=== PATIENT | female | born 1975 | race Caucasian/White ===

== ENCOUNTER 2017-08-29 02:28 | Emergency (ER) | payer MEDICAID ==
[2017-08-29] MEDS ORDERED: ONDANSETRON 4 MG/2 ML VIAL ONE (02:33)
[2017-08-29] MEDS ORDERED: NS 1,000 ML IV ONE ×2 (02:41)
[2017-08-29] MEDS ORDERED: ONDANSETRON 4 MG/2 ML VIAL IVP ONE (02:41)
[2017-08-29] MEDS ORDERED: HYDROmorphONE/DILAUDID 1 MG/ML INJ IVP ONE ×2 (02:41→03:21)
--- NOTE | 2017-08-29 02:41 | EDPHY ---
H & P Stated Complaint: c/o abd pain x3 days, dx with uti yesterday, severe pain tonight in R flank HPI/ROS: HPI CHIEF COMPLAINT: Abdominal pain, fever, nausea, recent diagnosis of urinary tract infection HISTORY OF PRESENT ILLNESS: This patient very pleasant 42-year-old female she presents emergency room by private vehicle for abdominal pain nausea and fever. For the past 3 days she has had some right-sided abdominal pain right flank pain. She complains of right upper quadrant and right side pain and right lower quadrant abdominal pain this evening worse. She really can't describe it. She states very severe. She distally reports she was seen at a clinic today and diagnosed with the urinary tract infection and started on antibiotics. She had an x-ray done and was told she has a stone. They do not think it was a kidney stone they think it may have been a gallstone. She has not any diarrhea. She does complain of fatigue, decreased appetite, and severe abdominal pain. Of note upon arrival to the emergency room she noted to be tachycardic, febrile , and hypertensive. Past Medical History: Denies significant medical history except for bipolar disorder Past Surgical History: No recent surgical history. Social History: Denies daily use of drugs alcohol tobacco products. Family History: Noncontributory ROS REVIEW OF SYSTEMS: A comprehensive 10 point review of systems is otherwise negative aside from elements mentioned in the history of present illness. Exam Constitutional appears nontoxic, but uncomfortable, triage nursing summary reviewed, vital signs reviewed, awake/alert. Eyes normal conjunctivae and sclera, EOMI, PERRLA. HENT normal inspection, atraumatic, moist mucus membranes, no epistaxis, neck supple/ no meningismus, no raccoon eyes. Respiratory clear to auscultation bilaterally, normal breath sounds, no respiratory distress, no wheezing. Cardiovascular tachycardic, regular rhythm, no murmur, no edema, distal pulses normal. Gastrointestinal tender palpation right upper quadrant, right mid abdomen and right lower quadrant, also tender palpation of the right CVA, no rebound, no guarding, normal bowel sounds, no distension, no pulsatile mass. Genitourinary no CVA tenderness. Musculoskeletal no midline vertebral tenderness, full range of motion, no calf swelling, no tenderness of extremities, no meningismus, good pulses, neurovascularly intact. Skin pink, warm, & dry, no rash, skin atraumatic. Neurologic awake, alert and oriented x 3, AAOx3, moves all 4 extremities equally, motor intact, sensory intact, CN II-XII intact, normal cerebellar, normal vision, normal speech. Psychiatric normal mood/affect. Heme/Lymph/Immune no lymphadenopathy. Differential diagnosis includes but is not limited to and in no particular order : Obstructing kidney stone, infected kidney stone, acute cholecystitis Bowel obstruction, appendicitis, gallbladder disease, diverticulitis, colitis, enteritis, perforated viscus, gastritis, GERD, esophagitis, urinary tract infection, pyelonephritis, kidney stones Medical Decision Making: Plan for this patient IV establishment blood draw, IV fluid bolus 2 L normal saline, IV Zofran for nausea, IV Dilaudid for pain control, Tylenol for fever control, obtain blood work, full rn cardiac rehab, CT scan abdomen pelvis with IV contrast to help delineate abdominal pain the setting of a fever. Check UA. Blood cultures. Lactic acid. Urine culture. Re-evaluation: CT scan abdomen pelvis with IV contrast called to me shows enhancement of the right kidney. No hydroureter obstructing stone. CT scan findings show most likely a early pyelonephritis. 0544: I did reexamine this patient this time she is feeling much better. She states she would like to go home. I re-examined her abdomen is soft nontender there is no guarding or peritoneal signs. She is not vomiting. She received 2 L of fluid here Tylenol for fever control. She had a lactic acid that was less than 2. Blood cultures have been drawn. Influenza is pending. Her urinalysis does not show UTI however she has been on antibiotics today for a diagnosis of urinary tract infection at her clinic. Her CT scan does show enhancement of her right kidney concerning for possibly early pyelonephritis. I think this is most likely the cause of her nausea vomiting and abdominal pain and right-sided pain. She would like to go home I will provide her prescription for nausea medicine and pain medicine. Additionally she continue her oral antibiotics. However I did give her return precautions she understands return emergency room she develops worsening abdominal pain fever or vomiting. 0617: Influenza is negative. Patient is eager to go home. Strict return precautions given. She understands return immediately to emergency room if develops worsening abdominal pain flank pain vomiting or fever. Of note patient's previous prescription for nitro for tone she is currently taking and told her to continue taking this. With good contact information with her if blood cultures result positive or if we need to change her antibiotic to another prescription. Source: Patient - Medical/Surgical History Hx Asthma: No Hx Chronic Respiratory Disease: No Hx Diabetes: No Hx Cardiac Disease: No Hx Renal Disease: No Hx Cirrhosis: No Hx Alcoholism: No Hx HIV/AIDS: No Hx Splenectomy or Spleen Trauma: No Other PMH: depression, bipolar, c section - Social History Smoking Status: Former smoker Constitutional: Initial Vital Signs Temperature (C) 39.5 C H 08/29/17 02:34 Heart Rate 108 H 08/29/17 02:34 Respiratory Rate 22 H 08/29/17 02:34 Blood Pressure 151/81 H 08/29/17 02:34 O2 Sat (%) 92 08/29/17 02:34 O2 Delivery Mode Room Air O2 (L/minute) 1 Allergies/Adverse Reactions: No Known Allergies Allergy (Unverified 08/29/17 02:40) Home Medications: Medication Instructions Recorded Gabapentin 08/29/17 Hydrocodone/APAP 5/325 [[place] 1 - 2 tab PO Q4H PRN #10 tab 08/29/17 5/325] KLONOPIN 08/29/17 Macrobid 08/29/17 Ondansetron HCl [Zofran] 4 mg PO Q4-6PRN PRN #10 tablet 08/29/17 Tamsulosin HCl 08/29/17 Medical Decision Making - Data Points Laboratory Results: Laboratory Results 08/29/17 02:53 08/29/17 02:53 08/29/17 08/29/17 08/29/17 04:50 03:50 03:07 WBC RBC Hgb Hct MCV MCH MCHC RDW Plt Count MPV Neut % (Auto) Lymph % (Auto) [place] % (Auto) Eos % (Auto) Baso % (Auto) Nucleat RBC Rel Count Absolute Neuts (auto) Absolute Lymphs (auto) Absolute Monos (auto) Absolute Eos (auto) Absolute Basos (auto) Absolute Nucleated RBC Immature Gran % Immature Gran # PT 12.7 SEC SEC (12.0-15.0) INR 0.93 (0.83-1.16) APTT 28.4 SEC SEC (23.0-38.0) VBG Lactic Acid Sodium Potassium Chloride Carbon Dioxide Anion Gap BUN Creatinine Estimated GFR Glucose Calcium Total Bilirubin Conjugated Bilirubin Unconjugated Bilirubin AST ALT Alkaline Phosphatase Total Protein Albumin Lipase Beta HCG, Qual Urine Color YELLOW Urine Appearance CLEAR Urine pH 7.0 (5.0-7.5) Ur Specific [place] 1.028 (1.002-1.030) Urine Protein NEGATIVE (NEGATIVE) Urine Ketones NEGATIVE (NEGATIVE) Urine Blood NEGATIVE (NEGATIVE) Urine Nitrate NEGATIVE (NEGATIVE) Urine Bilirubin NEGATIVE (NEGATIVE) Urine Urobilinogen 4.0 EU H EU (0.2-1.0) Ur Leukocyte Esterase NEGATIVE (NEGATIVE) Urine Glucose NEGATIVE (NEGATIVE) Nasal Influenza A PCR NEGATIVE FOR FLU A (NEGATIVE) Nasal Influenza B PCR NEGATIVE FOR FLU B (NEGATIVE) 08/29/17 08/29/17 08/29/17 03:07 02:53 02:53 WBC RBC Hgb Hct MCV MCH MCHC RDW Plt Count MPV Neut % (Auto) Lymph % (Auto) [place] % (Auto) Eos % (Auto) Baso % (Auto) Nucleat RBC Rel Count Absolute Neuts (auto) Absolute Lymphs (auto) Absolute Monos (auto) Absolute Eos (auto) Absolute Basos (auto) Absolute Nucleated RBC Immature Gran % Immature Gran # PT INR APTT VBG Lactic Acid 1.2 mmol/L mmol/L (0.7-2.1) Sodium 142 mEq/L mEq/L (134-144) Potassium 3.9 mEq/L mEq/L (3.5-5.2) Chloride 103 mEq/L mEq/L (97-110) Carbon Dioxide 26 mEq/l mEq/l (22-31) Anion Gap 13 mEq/L mEq/L (8-16) BUN 17 mg/dL mg/dL (7-23) Creatinine 0.9 mg/dL mg/dL (0.6-1.0) Estimated GFR > 60 Glucose 118 mg/dL H mg/dL (70-100) Calcium 9.4 mg/dL mg/dL (8.5-10.4) Total Bilirubin 0.6 mg/dL mg/dL (0.1-1.4) Conjugated Bilirubin 0.4 mg/dL mg/dL (0.0-0.5) Unconjugated Bilirubin 0.2 mg/dL mg/dL (0.0-1.1) AST 46 IU/L IU/L (14-46) ALT 71 IU/L H IU/L (9-52) Alkaline Phosphatase 101 IU/L IU/L (38-126) Total Protein 7.3 g/dL g/dL (6.3-8.2) Albumin 4.3 g/dL g/dL (3.5-5.0) Lipase 95 IU/L IU/L (23-300) Beta HCG, Qual NEGATIVE Urine Color Urine Appearance Urine pH Ur Specific [place] Urine Protein Urine Ketones Urine Blood Urine Nitrate Urine Bilirubin Urine Urobilinogen Ur Leukocyte Esterase Urine Glucose Nasal Influenza A PCR Nasal Influenza B PCR 08/29/17 02:53 WBC 10.94 10^3/uL H 10^3/uL (3.80-9.50) RBC 4.48 10^6/uL 10^6/uL (4.18-5.33) Hgb 14.6 g/dL g/dL (12.6-16.3) Hct 42.7 % % (38.0-47.0) MCV 95.3 fL fL (81.5-99.8) MCH 32.6 pg pg (27.9-34.1) MCHC 34.2 g/dL g/dL (32.4-36.7) RDW 12.0 % % (11.5-15.2) Plt Count 216 10^3/uL 10^3/uL (150-400) MPV 10.3 fL fL (8.7-11.7) Neut % (Auto) 80.2 % H % (39.3-74.2) Lymph % (Auto) 11.2 % L % (15.0-45.0) [place] % (Auto) 7.0 % % (4.5-13.0) Eos % (Auto) 0.9 % % (0.6-7.6) Baso % (Auto) 0.3 % % (0.3-1.7) Nucleat RBC Rel Count 0.0 % % (0.0-0.2) Absolute Neuts (auto) 8.77 10^3/uL H 10^3/uL (1.70-6.50) Absolute Lymphs (auto) 1.23 10^3/uL 10^3/uL (1.00-3.00) Absolute Monos (auto) 0.77 10^3/uL 10^3/uL (0.30-0.80) Absolute Eos (auto) 0.10 10^3/uL 10^3/uL (0.03-0.40) Absolute Basos (auto) 0.03 10^3/uL 10^3/uL (0.02-0.10) Absolute Nucleated RBC 0.00 10^3/uL 10^3/uL (0-0.01) Immature Gran % 0.4 % % (0.0-1.1) Immature Gran # 0.04 10^3/uL 10^3/uL (0.00-0.10) PT INR APTT VBG Lactic Acid Sodium Potassium Chloride Carbon Dioxide Anion Gap BUN Creatinine Estimated GFR Glucose Calcium Total Bilirubin Conjugated Bilirubin Unconjugated Bilirubin AST ALT Alkaline Phosphatase Total Protein Albumin Lipase Beta HCG, Qual Urine Color Urine Appearance Urine pH Ur Specific [place] Urine Protein Urine Ketones Urine Blood Urine Nitrate Urine Bilirubin Urine Urobilinogen Ur Leukocyte Esterase Urine Glucose Nasal Influenza A PCR Nasal Influenza B PCR Medications Given: Discontinued Medications Acetaminophen (Tylenol) 1,000 mg PO EDNOW ONE Stop: 08/29/17 02:49 Last Admin: 08/29/17 02:54 Dose: 1,000 mg Hydromorphone HCl (Dilaudid) 0.5 mg IVP EDNOW ONE Stop: 08/29/17 02:42 Last Admin: 08/29/17 02:48 Dose: 0.5 mg Hydromorphone HCl (Dilaudid) 1 mg IVP EDNOW ONE Stop: 08/29/17 03:22 Last Admin: 08/29/17 03:25 Dose: 1 mg Sodium Chloride (Ns) 1,000 mls @ 0 mls/hr IV EDNOW ONE; Wide Open PRN Reason: Protocol Stop: 08/29/17 02:42 Last Admin: 08/29/17 02:47 Dose: 1,000 mls Sodium Chloride (Ns) 1,000 mls @ 0 mls/hr IV EDNOW ONE; Wide Open PRN Reason: Protocol Stop: 08/29/17 02:42 Last Admin: 08/29/17 02:48 Dose: 1,000 mls Ceftriaxone Sodium/Dextrose (Rocephin 1 Gm (Premix)) 50 mls @ 100 mls/hr IV EDNOW ONE PRN Reason: Protocol Stop: 08/29/17 06:15 Last Admin: 08/29/17 05:51 Dose: 50 mls Ondansetron HCl (Zofran) 4 mg IVP EDNOW ONE Stop: 08/29/17 02:42 Last Admin: 08/29/17 02:47 Dose: 4 mg Departure - Departure Disposition: Home, Routine, Self-Care Clinical Impression: Abdominal pain Qualifiers: Abdominal location: unspecified location Qualified Code(s): R10.9 - Unspecified abdominal pain Condition: Good Instructions: Abdominal Pain (ED) Additional Instructions: 1. Drink lots of fluids stay well-hydrated. 2. Return emergency room if there is worsening abdominal pain fever or vomiting. 3. Take antibiotics as prescribed. 4. Zofran for nausea. 5. [place] for severe pain. 6. Return if worse. Referrals: NAVYA CLARK [Other] - As per Instructions Prescriptions: Hydrocodone/APAP 5/325 [[place] 5/325] 1 - 2 tab PO Q4H PRN #10 tab PRN Reason: Pain, Moderate Ondansetron HCl [Zofran] 4 mg PO Q4-6PRN PRN #10 tablet PRN Reason: Nausea/Vomiting, Use 1st
[2017-08-29] MEDS ORDERED: ACETAMINOPHEN 500 MG TAB PO ONE (02:48)
[2017-08-29 02:59] LABS: % IMMATURE GRANULYOCYTES 0.4 % (0.0-1.1); ABSOLUTE IMMATURE GRANULOCYTES 0.04 10^3/uL (0.00-0.10); ADD DIFF? NO; ADD MORPH? NO; ATYPICAL LYMPHOCYTE FLAG 0 (0-99); FRAGMENT RBC FLAG 0 (0-99); HEMATOCRIT 42.7 % (38.0-47.0); HEMOGLOBIN 14.6 g/dL (12.6-16.3); LEFT SHIFT FLG 0 (0-99); LIPEMIA HEMOLYSIS FLAG 90 (0-99); MEAN CELL HEMOGLOBIN 32.6 pg (27.9-34.1); MEAN CELL HEMOGLOBIN CONCENTR. 34.2 g/dL (32.4-36.7); MEAN CELL VOLUME 95.3 fL (81.5-99.8); MEAN PLATELET VOLUME 10.3 fL (8.7-11.7); PLATELET CLUMPS FLAG 0 (0-99); PLATELET COUNT 216 10^3/uL (150-400); RED BLOOD CELL COUNT 4.48 10^6/uL (4.18-5.33)
[2017-08-29 03:00] LABS: ADD SCAN? NO
[2017-08-29 03:13] LABS: ALANINE AMINOTRANSFERASE 71 IU/L (9-52); ALBUMIN 4.3 g/dL (3.5-5.0); ALKALINE PHOSPHATASE 101 IU/L (38-126); ANION GAP 13 mEq/L (8-16); ASPARTATE AMINOTRANSFERASE 46 IU/L (14-46); BILIRUBIN,TOTAL 0.6 mg/dL (0.1-1.4); BILIRUBIN-CONJUGATED 0.4 mg/dL (0.0-0.5); BILIRUBIN-UNCONJUGATED 0.2 mg/dL (0.0-1.1); CALCIUM 9.4 mg/dL (8.5-10.4); CARBON DIOXIDE 26 mEq/l (22-31); CHLORIDE 103 mEq/L (97-110); CREATININE 0.9 mg/dL (0.6-1.0); GLOMERULAR FILTRATION RATE > 60; GLUCOSE 118 mg/dL (70-100); POTASSIUM 3.9 mEq/L (3.5-5.2); SODIUM 142 mEq/L (134-144); TOTAL PROTEIN 7.3 g/dL (6.3-8.2)
[2017-08-29] MEDS ORDERED: IOPAMIDOL (ISOVUE-300) 100 ML BTL ONE (03:18)
[2017-08-29] MEDS ORDERED: HYDROmorphONE/DILAUDID 1 MG/ML INJ ONE (03:18)
[2017-08-29 03:22] LABS: INR 0.93 (0.83-1.16); PROTIME(PATIENT) 12.7 SEC (12.0-15.0)
[2017-08-29 03:23] LABS: APTT 28.4 SEC (23.0-38.0)
[2017-08-29 04:11] VITALS: RESP 16
[2017-08-29 04:12] LABS: COLOR YELLOW; LEUKOCYTE ESTERASE,URINE NEGATIVE (NEGATIVE); NITRITE,URINE NEGATIVE (NEGATIVE)
[2017-08-29 06:28] VITALS: BP 99/57; PULSE 98; TEMP 99.5; O2SAT 92
== END 2017-08-29 06:26 | disposition home or self-care (01) ==
DX: R10.11 Right upper quadrant pain (principal); R10.31 Right lower quadrant pain; E86.9 Volume depletion, unspecified; Z87.891 Personal history of nicotine dependence
CPT/HCPCS: 96365; J0696; J1170; J2405; Q9967

== ENCOUNTER 2017-08-30 12:58 | Emergency (ER) | payer MEDICAID ==
--- NOTE | 2017-08-30 13:15 | EDPHY ---
H & P Stated Complaint: RUQ pain Time Seen by Provider: 08/30/17 13:14 - Personal History LMP (Females 10-55): Irregular Current Tetanus/Diphtheria Vaccine: Yes Current Tetanus Diphtheria and Acellular Pertussis (TDAP): Yes - Medical/Surgical History Hx Asthma: No Hx Chronic Respiratory Disease: No Hx Diabetes: No Hx Cardiac Disease: No Hx Renal Disease: No Hx Cirrhosis: No Hx Alcoholism: No Hx HIV/AIDS: No Hx Splenectomy or Spleen Trauma: No Other PMH: depression, bipolar, c section - Social History Smoking Status: Former smoker Constitutional: Initial Vital Signs Temperature (C) 37.4 C 08/30/17 13:08 Heart Rate 96 08/30/17 13:08 Respiratory Rate 16 08/30/17 13:08 Blood Pressure 104/76 08/30/17 13:08 O2 Sat (%) 94 08/30/17 13:08 O2 Delivery Mode Room Air Allergies/Adverse Reactions: No Known Allergies Allergy (Unverified 08/29/17 02:40) Home Medications: Medication Instructions Recorded Gabapentin 08/29/17 Hydrocodone/APAP 5/325 [[place] 1 - 2 tab PO Q4H PRN #10 tab 08/29/17 5/325] KLONOPIN 08/29/17 Ondansetron HCl [Zofran] 4 mg PO Q4-6PRN PRN #10 tablet 08/29/17 Cephalexin [Keflex (RX)] 500 mg PO TID #30 cap 08/30/17 MYL[place] ULTIMATE-STRENGTH TAB 08/30/17 Medical Decision Making - Diagnostics Imaging Results: Imaging Impressions Abdomen/Pelvis Ultrasound 08/30/17 13:31 Impression: No evidence for hydronephrosis in either kidney. Mild patchy echogenicity of the right kidney suggestive of pyelonephritis is suggested on the comparison CT. Results called and discussed with Brad Good M.D. on 08/30/2017 at 14:33. Imaging: Discussed imaging studies w/ call center support consultant Radiologist ED Course/Re-evaluation: CHIEF COMPLAINT: Abdominal pain HISTORY OF PRESENT ILLNESS: This patient is a 42 year old female complaining of right upper quadrant abdominal pain beginning three days ago. She initially visited her primary care provider and was diagnosed with a UTI after she developed sudden shooting pains in her right upper quadrant. Her symptoms worsened despite antibiotic treatment, so a friend brought her to ED yesterday 08/29/17. She received CT imaging, fluids, pain medication, and IV antibiotics and was offered admission. She declined this. The patient was taking Nitrofurantoin prior to her visit to the emergency department, and has continued this along with Zofran and [place] for symptom relief. Her pain became worse this morning and she felt diaphoretic and febrile so she presents for reevaluation. She denies any recent travel or abnormal food or water sources. She is additionally concerned that she had not had her menstrual period in three months. She denies abnormal vaginal discharge, vomiting, diarrhea, chest pain, shortness of breath, recent cold or cough, or other associated symptoms. REVIEW OF SYSTEMS: A 10 point review of systems was performed and is negative with the exception of the elements mentioned in the history of present illness. PHYSICAL EXAM: HR, BP, O2 Sat, RR. Temp noted General Appearance: Alert, well hydrated, appropriate, and non-toxic appearing. Head: Atraumatic without scalp tenderness or obvious injury Eyes: Pupils equal, round, reactive to light and accommodation, EOMI, no trauma , no injection. Ears: Clear bilaterally, no perforation, normal landmarks Nose: Atraumatic, no rhinorrhea, clear. Throat: There is no erythema or exudates, no lesions, normal tonsils, mucus membranes moist. Neck: Supple, nontender, no lymphadenopathy. Respiratory: No retractions, no distress, no wheezes, and no accessory muscle use. Lungs are clear to auscultation bilaterally. Cardiovascular: Regular rate and rhythm, no murmurs, rubs, or gallops. Bilateral carotid, radial, dorsalis pedis, and posterior tibial pulses intact. Good capillary refill all extremities. Gastrointestinal: Right upper quadrant and right flank tenderness. Abdomen is soft, non-distended, no masses, no rebound, no guarding, no peritoneal signs. Musculoskeletal: Normal active ROM of all extremities, atraumatic. Neurological: Alert, appropriate, and interactive. Nonfocal neuro exam. Skin: No rashes, good turgor, no nodules on palpation. Past medical history: Pancreatitis. Bipolar disorder. Past surgical history: Cesarian section. Family history: Noncontributory. Social history: No alcohol use. Friend at bedside. Former smoker. History of alcohol use, none currently. DIFFERENTIAL DIAGNOSIS: The differential diagnosis for the patient's abdominal pain included but was not limited to ovarian cyst, pelvic inflammatory disease, ovarian torsion, urinary tract infection, ectopic , cholecystitis, and appendicitis. MEDICAL DECISION MAKING: This 42 year old female presents with right upper quadrant and right flank pain and tenderness worsening over the last three days. Her primary care provider initially treated her for UTI with Macrobid. She was evaluated in this emergency department yesterday 08/29/17. Reviewed medical records from this visit. CT abdomen/pelvis with contrast at that time revealed pyelonephritis of the right kidney with no evidence of appendicitis, cholecystitis, pancreatitis, diverticulitis, or nephrolithiasis. She was treated with IV Rocephin at that time. She was discharged pending urine cultures. Plan for ultrasound of right kidney for further evaluation. Administered 1gm IV Rocephin. Administered 4mg IV Zofran, 1mg IV Dilaudid, 30mg IV Ketorolac for symptom relief. 14:[address] Saenz, radiologist. US right kidney shows right pyelonephritis, no obstruction or abscess. 15:16 Reassessed patient. She is feeling better following antiemetics and pain medication. Discussed imaging results. Plan to discharge home in good condition with prescription for Keflex upon completion of her IV Rocephin. She will continue to take Zofran and [place] as directed as needed for symptom relief. She understands she should take Keflex and discontinue her Macrobid. Plan to provide additional [place] for pain relief as she continues to experience considerable pain. Follow up and return precautions discussed. She is comfortable with this plan. - Data Points Laboratory Results: Laboratory Results 08/30/17 13:47 08/30/17 13:47 08/30/17 08/30/17 13:47 13:47 WBC 10.33 10^3/uL H 10^3/uL (3.80-9.50) RBC 4.00 10^6/uL L 10^6/uL (4.18-5.33) Hgb 13.0 g/dL g/dL (12.6-16.3) Hct 38.5 % % (38.0-47.0) MCV 96.3 fL fL (81.5-99.8) MCH 32.5 pg pg (27.9-34.1) MCHC 33.8 g/dL g/dL (32.4-36.7) RDW 12.1 % % (11.5-15.2) Plt Count 191 10^3/uL 10^3/uL (150-400) MPV 10.7 fL fL (8.7-11.7) Neut % (Auto) 70.5 % % (39.3-74.2) Lymph % (Auto) 16.9 % % (15.0-45.0) [place] % (Auto) 10.4 % % (4.5-13.0) Eos % (Auto) 1.4 % % (0.6-7.6) Baso % (Auto) 0.3 % % (0.3-1.7) Nucleat RBC Rel Count 0.0 % % (0.0-0.2) Absolute Neuts (auto) 7.29 10^3/uL H 10^3/uL (1.70-6.50) Absolute Lymphs (auto) 1.75 10^3/uL 10^3/uL (1.00-3.00) Absolute Monos (auto) 1.07 10^3/uL H 10^3/uL (0.30-0.80) Absolute Eos (auto) 0.14 10^3/uL 10^3/uL (0.03-0.40) Absolute Basos (auto) 0.03 10^3/uL 10^3/uL (0.02-0.10) Absolute Nucleated RBC 0.00 10^3/uL 10^3/uL (0-0.01) Immature Gran % 0.5 % % (0.0-1.1) Immature Gran # 0.05 10^3/uL 10^3/uL (0.00-0.10) Sodium 142 mEq/L mEq/L (134-144) Potassium 4.2 mEq/L mEq/L (3.5-5.2) Chloride 104 mEq/L mEq/L (97-110) Carbon Dioxide 26 mEq/l mEq/l (22-31) Anion Gap 12 mEq/L mEq/L (8-16) BUN 6 mg/dL L mg/dL (7-23) Creatinine 0.7 mg/dL mg/dL (0.6-1.0) Estimated GFR > 60 Glucose 100 mg/dL mg/dL (70-100) Calcium 9.3 mg/dL mg/dL (8.5-10.4) Medications Given: Discontinued Medications Hydromorphone HCl (Dilaudid) 1 mg IVP EDNOW ONE Stop: 08/30/17 13:31 Last Admin: 08/30/17 13:55 Dose: 1 mg Ceftriaxone Sodium/Dextrose (Rocephin 1 Gm (Premix)) 50 mls @ 100 mls/hr IV EDNOW ONE PRN Reason: Protocol Stop: 08/30/17 13:58 Last Admin: 08/30/17 14:41 Dose: 50 mls Sodium Chloride (Ns) 1,000 mls @ 0 mls/hr IV ONCE ONE PRN Reason: Wide Open Stop: 08/30/17 14:01 Last Admin: 08/30/17 14:42 Dose: 1,000 mls Ketorolac Tromethamine (Toradol) 30 mg IVP EDNOW ONE Stop: 08/30/17 13:30 Last Admin: 08/30/17 13:55 Dose: 30 mg Ondansetron HCl (Zofran) 4 mg IVP EDNOW ONE Stop: 08/30/17 13:31 Last Admin: 08/30/17 13:56 Dose: 4 mg Departure - Departure Disposition: Home, Routine, Self-Care Clinical Impression: Acute pyelonephritis Condition: Good Instructions: Urinary Tract Infection in Women (ED), Kidney Infection (ED) Additional Instructions: 1. Take Keflex as prescribed. Discontinue Macrobid. 2. Continue to take Zofran as directed as needed for nausea relief. 3. Take [place] as prescribed as needed for pain relief. 4. Follow up with your primary care provider in 2-3 days for continued evaluation. 5. Return to the Emergency Department for fever, uncontrollable vomiting, worsening abdominal or flank pain, or failure to improve within 72 hours. Referrals: PRISCA CLARK [Other] - As per Instructions Edmund Castillo MD [Medical Doctor] - As per Instructions Prescriptions: Cephalexin [Keflex (RX)] 500 mg PO TID #30 cap Report Scribed for: Brad Good Report Scribed by: Ria Anderson Date of Report: 08/30/17 Time of Report: 13:47
[2017-08-30] MEDS ORDERED: KETOROLAC 30 MG/1 ML SDV IVP ONE (13:29)
[2017-08-30] MEDS ORDERED: HYDROmorphONE/DILAUDID 1 MG/ML INJ IVP ONE (13:30)
[2017-08-30] MEDS ORDERED: ONDANSETRON 4 MG/2 ML VIAL IVP ONE (13:30)
[2017-08-30] MEDS ORDERED: NS 1,000 ML IV ONE (14:00)
[2017-08-30 14:02] LABS: PLATELET COUNT 191 10^3/uL (150-400)
[2017-08-30 15:42] VITALS: BP 98/51; PULSE 89; RESP 18; TEMP 97.9; O2SAT 92
== END 2017-08-30 15:42 | disposition home or self-care (01) ==
DX: N10 Acute pyelonephritis (principal); Z87.891 Personal history of nicotine dependence
CPT/HCPCS: 96365; J0696; J1170; J1885; J2405

== ENCOUNTER 2017-09-14 14:08 | Emergency (ER) | payer MEDICAID ==
[2017-09-14] MEDS ORDERED: ONDANSETRON 4 MG/2 ML VIAL IVP ONE (14:18)
[2017-09-14] MEDS ORDERED: NS 1,000 ML IV ONE (14:18)
[2017-09-14 14:21] VITALS: BP 106/54; PULSE 104; RESP 18; TEMP 97.9; O2SAT 97
--- NOTE | 2017-09-14 14:22 | EDPHY ---
H & P Time Seen by Provider: 09/14/17 14:12 HPI/ROS: CHIEF COMPLAINT: Right lower quadrant pain, intoxication HISTORY OF PRESENT ILLNESS: Patient is a 42-year-old alcoholic female with a history of depression and alcoholism and pancreatitis who is brought to the emergency department by police for intoxication and right lower quadrant abdominal pain. The patient was found wandering around in the street intoxicated in front of the [facility]. When police confronted her she began complaining of right lower quadrant pain. She was seen here on the and 30 of August complaining of right flank and right upper quadrant pain. At that time she had a CT abdomen pelvis that showed pyelonephritis on the right side with normal appearing appendix, gallbladder, pancreas and no sign of kidney stone. She was given IV Rocephin and urine cultures were sent which came back with 3 nonspecific colony types. She had also been placed on Macrobid a week earlier by her primary for a diagnosis of urinary tract infection. She returned the next day on August 29 complaining of continued pain and had an ultrasound that again confirmed signs of pyelonephritis but no other abnormalities. She again had Rocephin and was discharged with Keflex. She states that she completed those antibiotics but continues to have pain. She primarily complains about her and states that they need to get a divorce but when reminded does complain of right lower quadrant abdominal pain. She denies any back pain or right upper quadrant pain. No fevers. She repeatedly was stopped from putting her finger down her throat to induce vomiting. REVIEW OF SYSTEMS: Constitutional: denies: chills, fever, recent illness, recent injury EENTM: denies: blurred vision, double vision, nose congestion Respiratory: denies: cough, shortness of breath Cardiac: denies: chest pain, irregular heart rate, lightheadedness, palpitations Gastrointestinal/Abdominal: denies: abdominal pain, diarrhea, nausea, vomiting, blood streaked stools Genitourinary: denies: dysuria, frequency, hematuria, pain Musculoskeletal: denies: joint pain, muscle pain Skin: denies: lesions, rash, jaundice, bruising Neurological: denies: headache, numbness, paresthesia, tingling, dizziness, weakness Hematologic/Lymphatic: denies: blood clots, easy bleeding, easy bruising Immunologic/allergic: denies: HIV/AIDS, transplant EXAM: GENERAL: well nourished HEAD: Atraumatic, normocephalic. EYES: Pupils equal round and reactive to light, extraocular movements intact, sclera anicteric, conjunctiva are normal. ENT: TMs normal, nares patent, oropharynx clear without exudates. Moist mucous membranes. NECK: Normal range of motion, supple without lymphadenopathy or JVD. LUNGS: Breath sounds clear to auscultation bilaterally and equal. No wheezes rales or rhonchi. HEART: Regular rate and rhythm without murmurs, rubs or gallops. ABDOMEN: Right lower quadrant pain, no tenderness to palpation, normoactive bowel sounds. No guarding, no rebound. No masses appreciated. BACK: No CVA tenderness, no spinal tenderness, step-offs or deformities EXTREMITIES: Normal range of motion, no pitting or edema. No clubbing or cyanosis. NEUROLOGICAL: Cranial nerves II through XII grossly intact. Normal speech, normal gait. 5/5 strength, normal movement in all extremities, normal sensation PSYCH: Has been drinking however clinically sober answers questions appropriately. Source: Patient, EMS, Old records Exam Limitations: Intoxication - Medical/Surgical History Hx Asthma: No Hx Chronic Respiratory Disease: No Hx Diabetes: No Hx Cardiac Disease: No Hx Renal Disease: No Hx Cirrhosis: No Hx Alcoholism: No Hx HIV/AIDS: No Hx Splenectomy or Spleen Trauma: No Other PMH: Alcohol abuse, depression, bipolar, c section - Family History Significant Family History: No pertinent family hx - Social History Smoking Status: Former smoker Alcohol Use: Sober Drug Use: None Constitutional: Initial Vital Signs Temperature (C) 36.6 C 09/14/17 14:12 Heart Rate 104 H 09/14/17 14:12 Respiratory Rate 18 09/14/17 14:12 Blood Pressure 106/54 L 09/14/17 14:12 O2 Sat (%) 97 09/14/17 14:12 O2 Delivery Mode Room Air Allergies/Adverse Reactions: No Known Allergies Allergy (Unverified 08/29/17 02:40) Home Medications: Medication Instructions Recorded Gabapentin 08/29/17 Hydrocodone/APAP 5/325 [Alta 1 - 2 tab PO Q4H PRN #10 tab 08/29/17 5/325] KLONOPIN 08/29/17 Ondansetron HCl [Zofran] 4 mg PO Q4-6PRN PRN #10 tablet 08/29/17 Cephalexin [Keflex (RX)] 500 mg PO TID #30 cap 08/30/17 HYDROcodone/APAP [Alta 1 - 2 each PO Q4-6PRN PRN #20 tab 08/30/17 [id number]] MYLANTA ULTIMATE-STRENGTH TAB 08/30/17 Medical Decision Making ED Course/Re-evaluation: 3:00 p.m. the patient continues to put her finger down her throat, when I asked her to stop she told me that she wants pain medicine. I told her I did not feel comfortable giving her narcotics because I am concerned about abuse. She was very angry about this and states that she would like to just go home. She does not wish to go back to the [facility]. Her abdominal exam remains benign. 3:05 p.m. after being discharged the patient is demanding a ride home because she was "brought here unwillingly". 3:10 p.m. I reviewed the patient's lab work. Her is positive. Her test was negative when she was seen 2 weeks ago. I found her in the waiting room calling a cab. I brought her back to triage informed her of this and recommended she come back is into the ER so that we can rule out ectopic . I told her I would give her the pain medication. She refused and stated she just wants to go home. She states she is not currently having pain which will come back if she does. I told her to stop drinking because she is and to begin taking multivitamin. She states that she does not usually drink. She is intoxicated however I feel that she has decision making capacity and understands the risks involved. She is ambulating without any difficulty at all. She is able to have a complete conversation and answer my questions appropriately. She understands the risks and benefits we discussed at length. The nurse and I both separately encouraged her to stay and encouraged her to return immediately if she has more right lower quadrant pain. She is primarily concerned about her who called the police on her today and a few days ago as well. Differential Diagnosis: Partial list of the Differential diagnosis considered include but were not limited to; intoxication, and drug-seeking behavior and although unlikely based on the history and physical exam, I also considered appendicitis, kidney stone, urinary tract infection, pyelonephritis. - Data Points Laboratory Results: Laboratory Results 09/14/17 14:40 09/14/17 14:40 09/14/17 09/14/17 09/14/17 14:50 14:40 14:40 WBC RBC Hgb Hct MCV MCH MCHC RDW Plt Count MPV Neut % (Auto) Lymph % (Auto) Yell % (Auto) Eos % (Auto) Baso % (Auto) Nucleat RBC Rel Count Absolute Neuts (auto) Absolute Lymphs (auto) Absolute Monos (auto) Absolute Eos (auto) Absolute Basos (auto) Absolute Nucleated RBC Immature Gran % Immature Gran # Sodium 154 mEq/L H mEq/L (134-144) Potassium 4.7 mEq/L mEq/L (3.5-5.2) Chloride 110 mEq/L mEq/L (97-110) Carbon Dioxide 27 mEq/l mEq/l (22-31) Anion Gap 17 mEq/L H mEq/L (8-16) BUN 19 mg/dL mg/dL (7-23) Creatinine 0.9 mg/dL mg/dL (0.6-1.0) Estimated GFR > 60 Glucose 100 mg/dL mg/dL (70-100) Calcium 10.0 mg/dL mg/dL (8.5-10.4) Total Bilirubin 0.3 mg/dL mg/dL (0.1-1.4) Conjugated Bilirubin 0.3 mg/dL mg/dL (0.0-0.5) Unconjugated Bilirubin 0.0 mg/dL mg/dL (0.0-1.1) AST 56 IU/L H IU/L (14-46) ALT 64 IU/L H IU/L (9-52) Alkaline Phosphatase 106 IU/L IU/L (38-126) Total Protein 8.1 g/dL g/dL (6.3-8.2) Albumin 4.7 g/dL g/dL (3.5-5.0) Lipase 70 IU/L IU/L (23-300) Beta HCG, Qual POSITIVE Urine Color YELLOW Urine Appearance MODERATELY TURBID Urine pH 5.0 (5.0-7.5) Ur Specific [place] 1.019 (1.002-1.030) Urine Protein NEGATIVE (NEGATIVE) Urine Ketones NEGATIVE (NEGATIVE) Urine Blood NEGATIVE (NEGATIVE) Urine Nitrate NEGATIVE (NEGATIVE) Urine Bilirubin NEGATIVE (NEGATIVE) Urine Urobilinogen NEGATIVE EU EU (0.2-1.0) Ur Leukocyte Esterase NEGATIVE (NEGATIVE) Urine RBC 1-3 /hpf /hpf (0-3) Urine WBC 1-3 /hpf /hpf (0-3) Ur Epithelial Cells 3+ /lpf H /lpf (NONE-1+) Hyaline Casts 1-5 /lpf /lpf (0-1) Urine Mucus TRACE /lpf /lpf (NONE-1+) Urine Glucose NEGATIVE (NEGATIVE) Ethyl Alcohol 216 mg/dL H mg/dL (0-10) 09/14/17 14:40 WBC 10.10 10^3/uL H 10^3/uL (3.80-9.50) RBC 4.72 10^6/uL 10^6/uL (4.18-5.33) Hgb 14.9 g/dL g/dL (12.6-16.3) Hct 44.9 % % (38.0-47.0) MCV 95.1 fL fL (81.5-99.8) MCH 31.6 pg pg (27.9-34.1) MCHC 33.2 g/dL g/dL (32.4-36.7) RDW 12.2 % % (11.5-15.2) Plt Count 382 10^3/uL 10^3/uL (150-400) MPV 9.6 fL fL (8.7-11.7) Neut % (Auto) 73.3 % % (39.3-74.2) Lymph % (Auto) 21.7 % % (15.0-45.0) Yell % (Auto) 3.1 % L % (4.5-13.0) Eos % (Auto) 0.7 % % (0.6-7.6) Baso % (Auto) 0.7 % % (0.3-1.7) Nucleat RBC Rel Count 0.0 % % (0.0-0.2) Absolute Neuts (auto) 7.41 10^3/uL H 10^3/uL (1.70-6.50) Absolute Lymphs (auto) 2.19 10^3/uL 10^3/uL (1.00-3.00) Absolute Monos (auto) 0.31 10^3/uL 10^3/uL (0.30-0.80) Absolute Eos (auto) 0.07 10^3/uL 10^3/uL (0.03-0.40) Absolute Basos (auto) 0.07 10^3/uL 10^3/uL (0.02-0.10) Absolute Nucleated RBC 0.00 10^3/uL 10^3/uL (0-0.01) Immature Gran % 0.5 % % (0.0-1.1) Immature Gran # 0.05 10^3/uL 10^3/uL (0.00-0.10) Sodium Potassium Chloride Carbon Dioxide Anion Gap BUN Creatinine Estimated GFR Glucose Calcium Total Bilirubin Conjugated Bilirubin Unconjugated Bilirubin AST ALT Alkaline Phosphatase Total Protein Albumin Lipase Beta HCG, Qual Urine Color Urine Appearance Urine pH Ur Specific [place] Urine Protein Urine Ketones Urine Blood Urine Nitrate Urine Bilirubin Urine Urobilinogen Ur Leukocyte Esterase Urine RBC Urine WBC Ur Epithelial Cells Hyaline Casts Urine Mucus Urine Glucose Ethyl Alcohol Medications Given: Discontinued Medications Sodium Chloride (Ns) 1,000 mls @ 0 mls/hr IV EDNOW ONE; Wide Open PRN Reason: Protocol Stop: 09/14/17 14:19 Last Admin: 09/14/17 14:40 Dose: 1,000 mls Ondansetron HCl (Zofran) 4 mg IVP EDNOW ONE Stop: 09/14/17 14:19 Last Admin: 09/14/17 14:40 Dose: 4 mg Departure - Departure Disposition: Against Medical Advice Clinical Impression: Alcohol intoxication Qualifiers: Complication of substance-induced condition: uncomplicated Qualified Code(s): F10.920 - Alcohol use, unspecified with intoxication, uncomplicated Qualifiers: Weeks of gestation: less than 8 weeks Qualified Code(s): Z3A.01 - Less than 8 weeks gestation of Condition: Good Instructions: (ED), Alcohol Intoxication (ED) Referrals: Patient,NotPresent [Unknown] - As per Instructions
[2017-09-14 14:55] LABS: PLATELET COUNT 382 10^3/uL (150-400)
== END 2017-09-14 15:45 | disposition left against medical advice (07) ==
LOC: EDUNIT#
PROC: 3E0337Z Introduction of Electrolytic and Water Balance Substance into Peripheral Vein, Percutaneous Approach (ICD-10-PCS; principal; 2017-09-14)
DX: F10.920 Alcohol use, unspecified with intoxication, uncomplicated (principal); E86.9 Volume depletion, unspecified; Z33.1 Pregnant state, incidental; Z87.891 Personal history of nicotine dependence
CPT/HCPCS: 96374; G0480; J2405

== ENCOUNTER 2018-01-28 10:58 | Emergency (ER) | payer MEDICAID ==
[2018-01-28 11:09] VITALS: BP 123/52
--- NOTE | 2018-01-28 11:19 | EDPHY ---
H & P Stated Complaint: L facial swelling Time Seen by Provider: 01/28/18 11:18 HPI/ROS: HPI: This is a 42-year-old female who presents with Chief Complaint: Left side of face swelling Location: Left restorationist Quality: swelling Duration: 2 days Signs and Symptoms: no fever, no nausea, no vomiting, no photophobia, no noise sensitivity, no neck stiffness, no ear pain, no tinnitus, no nasal congestion, no sinus pressure, no weakness, no radiation, no aura Timing: Gradually Severity: [id number] Context: Patient presents with what she believes to be a pimple at the left restorationist and scalp area that she noticed approximately 2 days ago. She reports that it has gradually increased in size and is now reddened and tender to touch. There is no drainage/blister/rash/ear pain/fever. Denies any history of diabetes mellitus/MRSA. Patient is postmenopausal. Patient denies any difficulty opening her mouth or chewing. She denies any dental cavities. Modifying Factors: None Comment: ROS: see HPI Constitutional: No fever, no chills, no weight loss Eyes: No blurred vision Respiratory: No shortness of breath, no cough Cardiovascular: No chest pain, no palpitations Gastrointestinal: No nausea, no vomiting, no diarrhea, no hematemesis, no blood in stool Genitourinary: No dysuria, no blood in urine Extremities: No myalgias, no edema Neurologic: No weakness, no numbness Skin: No rashes, no petechiae Hematologic: No bruising, no bleeding MEDICAL/SURGICAL/SOCIAL HISTORY: Medical history: Alcohol abuse, depression, bipolar, c section, postmenopausal Surgical history: Denies Social history: Nonsmoker. Family history noncontributory. CONSTITUTIONAL: Nontoxic appearing middle-aged female, awake and alert, no obvious distress HEENT: Atraumatic and normocephalic, PERRL, EOMI. Nares patent; no rhinorrhea; no nasal mucosal edema. Tympanic membranes clear. Oropharynx clear, no exudate and moist pink mucosa. Airway patent. No lymphadenopathy. No meningismus. Cardiovascular: Normal S1/S2, regular rate, regular rhythm, without murmur rub or gallop. PULMONARY/CHEST: Symmetrical and nontender. Clear to auscultation bilaterally. Good air movement. No accessory muscle usage. ABDOMEN: Soft, nondistended, nontender. EXTREMITIES: 2/2 pulses, strength 5/5, no deformities, no clubbing, no cyanosis or edema. NEUROLOGICAL: no focal neuro deficits. GCS 15. SKIN: Warm and dry, 6 mm annular raised indurated area at left restorationist in hair line. mild erythema. Good capillary refill. Source: Patient Exam Limitations: No limitations - Personal History LMP (Females 10-55): Post Menopausal Current Tetanus/Diphtheria Vaccine: Yes Current Tetanus Diphtheria and Acellular Pertussis (TDAP): Yes - Medical/Surgical History Hx Asthma: No Hx Chronic Respiratory Disease: No Hx Diabetes: No Hx Cardiac Disease: No Hx Renal Disease: No Hx Cirrhosis: No Hx Alcoholism: Yes Hx HIV/AIDS: No Hx Splenectomy or Spleen Trauma: No Other PMH: Alcohol abuse, depression, bipolar, c section - Social History Smoking Status: Former smoker Constitutional: Initial Vital Signs Temperature (C) 37.4 C 01/28/18 11:07 Heart Rate 81 01/28/18 11:07 Respiratory Rate 16 01/28/18 11:07 Blood Pressure 123/52 H 01/28/18 11:07 O2 Sat (%) 94 01/28/18 11:07 O2 Delivery Mode Room Air Allergies/Adverse Reactions: No Known Allergies Allergy (Unverified 01/28/18 11:06) Home Medications: Medication Instructions Recorded Gabapentin 08/29/17 KLONOPIN 08/29/17 Clindamycin HCl [Clindamycin] 300 mg PO TID #21 cap 01/28/18 Sertraline HCl 01/28/18 Medical Decision Making ED Course/Re-evaluation: No fluctuance to I and D. LET topical applied for patient's comfort. Given Clindamycin in the emergency room as well as prescription for same. No signs of periorbital cellulitis/facial cellulitis/periapical abscess/otitis media/otitis externa Given written and verbal wound care instructions This patient was seen under the supervision of my secondary supervising physician. I evaluated care for this patient independently. Differential Diagnosis: Differential diagnosis includes but is not limited to cellulitis, folliculitis, abscess. - Data Points Medications Given: Discontinued Medications Clindamycin (Clindamycin) 300 mg PO EDNOW ONE PRN Reason: Protocol Stop: 01/28/18 11:39 Last Admin: 01/28/18 11:48 Dose: 300 mg Tetracaine/Epinephrine/Lidocaine (Let Gel Topical) 1 ea TP EDNOW ONE Stop: 01/28/18 11:36 Last Admin: 01/28/18 11:48 Dose: 1 ea Departure - Departure Disposition: Home, Routine, Self-Care Clinical Impression: Facial infection Condition: Good Instructions: Cellulitis (ED) Additional Instructions: Apply warm compresses for 20-30 minutes at a time for 2 to 3 times per day for the next 1-2 days. Take clindamycin every 8 hr x7 days. Do not skip a dose. Return to the ER immediately if you experience redness, red streaks, have fevers /chills, flu like symptoms, limited range of motion, or any other symptoms that concern you. Referrals: Sophia Christiansen, PAC [Primary Care Provider] - 3-4 days, if not improved Prescriptions: Clindamycin HCl [Clindamycin] 300 mg PO TID #21 cap
[2018-01-28] MEDS ORDERED: LET GEL TOPICAL 1 EA SYR TP ONE (11:35)
[2018-01-28] MEDS ORDERED: CLINDAMYCIN 150 MG CAP PO ONE (11:38)
== END 2018-01-28 11:59 | disposition home or self-care (01) ==
DX: L08.9 Local infection of the skin and subcutaneous tissue, unspecified (principal); Z87.891 Personal history of nicotine dependence

== ENCOUNTER 2018-01-29 20:44 | Emergency (ER) | payer MEDICAID ==
--- NOTE | 2018-01-29 21:43 | EDPHY ---
H & P Time Seen by Provider: 01/29/18 20:57 HPI/ROS: CHIEF COMPLAINT: Left facial swelling HISTORY OF PRESENT ILLNESS: 42-year-old female presents to the emergency department after she was seen in the emergency department yesterday with facial cellulitis. She was started on clindamycin. She has been taking this medication as prescribed. Presents because she thought the swelling was getting worse. No fevers or chills. She has been applying warm compresses. She thought that she was developing more swelling especially to the left upper lower eyelid on the left side. She states this has improved although the facial pain continues to be very painful and continues to swell. ROS: No fevers, chills, neck pain. No headache. No tingling in her scalp. No rash. Past Medical/Surgical History: Alcohol abuse, depression, anxiety, Social History: and lives in [place] Smoking Status: Former smoker Physical Exam: On examination the patient has some mild swelling noted to the left lower eyelid. She has area of swelling and redness just anterior to the hairline on the left side near the left faith. There is some slight fluctuance. There is no vesicular lesions. No Walter sign. Her pupils are equal and round and reactive. There is no scleral injection. Neck is supple. There is no pre or postauricular lymphadenopathy palpated. Constitutional: Initial Vital Signs Temperature (C) 36.7 C 01/29/18 20:48 Heart Rate 84 01/29/18 20:48 Respiratory Rate 16 01/29/18 20:48 Blood Pressure 113/60 01/29/18 20:48 O2 Sat (%) 95 01/29/18 20:48 O2 Delivery Mode Room Air Allergies/Adverse Reactions: No Known Allergies Allergy (Unverified 01/28/18 11:06) Home Medications: Medication Instructions Recorded Gabapentin 08/29/17 KLONOPIN 08/29/17 Clindamycin HCl [Clindamycin] 300 mg PO TID #21 cap 01/28/18 Sertraline HCl 01/28/18 MDM/Departure - MDM Procedures: The patient's abscess was located on the left face. I obtained verbal consent from the patient to drain the abscess who was informed about the possibility of bleeding and pain. The abscess was incised with 11 Blade scalpel and a moderate amount of purulent drainage was expressed. No packing needed. The patient tolerated the procedure well. The procedure was performed by myself. ED Course/Re-evaluation: 42-year-old female presents to the emergency department with facial cellulitis. She had an abscess which was incised and drained. She was feeling better after the pressure has been relieved. Wound culture is pending. She will continue clindamycin and return if she develops fever or any worsening symptoms. She will continue warm compresses. She was instructed to return if she developed fever, increasing swelling, or if she felt worse in any way. - Depart Disposition: Home, Routine, Self-Care Clinical Impression: abscess left side of face Cellulitis Qualifiers: Site of cellulitis: face Qualified Code(s): L03.211 - Cellulitis of face Condition: Good Instructions: Cellulitis (ED), Abscess (ED) Additional Instructions: Continue clindamycin as prescribed. Call [phone] for the results of your wound culture in 48 hr. Return to the emergency department if you developed fever, increasing swelling, increasing pain, or if you feel worse in any way. Stand Alone Forms: Work Excuse Referrals: Sophia Christiansen, PAC [Primary Care Provider] - 1-2 days without fail
[2018-01-29 21:55] VITALS: BP 117/57
== END 2018-01-29 21:54 | disposition home or self-care (01) ==
PROC: 0H91XZZ Drainage of Face Skin, External Approach (ICD-10-PCS; principal; 2018-01-29)
DX: L02.01 Cutaneous abscess of face (principal); L03.211 Cellulitis of face; Z87.891 Personal history of nicotine dependence